=== PATIENT | male | born 1980 | race Caucasian/White ===

== ENCOUNTER → 2018-11-30 10:46 | Outpatient (CLI) | payer OTHER, SELFPAY ==
--- NOTE | 2018-11-30 | DI.CT.S_ITS ---
PROCEDURE: CT SINUS SCREEN WO CON INDICATIONS: Acute maxillary sinusitis, unspecified TECHNIQUE: Noncontrast 3.0 mm axial images acquired from the frontal sinuses to the mid-sella, with coronal and sagittal reformats. For radiation dose reduction, the following was used: automated exposure control, adjustment of mA and/or kV according to patient size. COMPARISON: [facility], CT, HEAD WITHOUT CONTRAST, 04/12/2016, 8:59. FINDINGS: Image quality: Excellent. Maxillary Sinuses: There is subtotal opacification seen of the right maxillary sinus. A portion of the medial wall of the maxillary sinus is demineralized. There is a small amount of mucosal thickening seen along the inferior aspect of the left maxillary sinus. Ethmoid Air Cells: Moderate mucosal thickening can be seen within the right ethmoid air cells. There is a mild amount of mucosal thickening seen on the left. No significant bony abnormality is seen. Sphenoid Sinuses: No bony remodeling or destruction. Sinuses are clear. Frontal Sinuses: No bony remodeling or destruction. There is mild to moderate mucosal thickening seen within the inferior right frontal sinus. Ostiomeatal Complexes: Ostiomeatal complexes are patent. No Adele cells. Miscellaneous: Visualized intra-orbital contents are normal. Bilateral shaq bullosa are seen. The right shaq bullosa is nearly completely opacified. There is mild to moderate rightward nasal septal deviation seen. IMPRESSION: There is subtotal opacification of the right maxillary sinus, which is consistent with the given history. Mild mucosal thickening is seen elsewhere within the paranasal sinuses. Dictated by: Conrado Headley M.D. on 11/30/2018 at 11:34 Approved by: Conrado Headley M.D. on 11/30/2018 at 11:37
== END ==
PROVIDERS: PCP Family Medicine; Visit Provider Nurse Practitioner Family
DX: J01.00 Acute maxillary sinusitis, unspecified (principal); J32.8 Other chronic sinusitis; J34.2 Deviated nasal septum; J34.3 Hypertrophy of nasal turbinates
CPT/HCPCS: 70486

== ENCOUNTER → 2021-05-17 15:07 | Outpatient (CLI) | payer OTHER, SELFPAY ==
--- NOTE | 2021-05-17 | DI.CT.S_ITS ---
PROCEDURE: CT HEAD/BRAIN WO CON INDICATIONS: Arthralgia of right temporomandibular joint TECHNIQUE: Noncontrast 4.5 mm thick angled axial sections acquired from the foramen magnum to the vertex, with coronal and sagittal reformats. For radiation dose reduction, the following was used: automated exposure control, adjustment of mA and/or kV according to patient size. COMPARISON: [facility], CT, HEAD WITHOUT CONTRAST, 04/12/2016, 8:59. FINDINGS: Image quality: Excellent. CSF spaces: Basal cisterns are patent. No extra-axial fluid collections. Ventricles are normal in size and shape. Brain: No midline shift. No intracranial masses or hemorrhage. Zamorano-white matter interface is normal. Skull and face: Calvarium and visualized facial bones are intact, without suspicious lesions. No significant TMJ degenerative change bilaterally. Sinuses: Visualized sinuses and mastoids are clear. IMPRESSION: No evidence acute intracranial process. Grossly unremarkable appearance of TMJ joints. Dictated by: Zachary Orta M.D. on 05/17/2021 at 15:27 Approved by: Zachary Orta M.D. on 05/17/2021 at 15:28
== END ==
PROVIDERS: PCP Nurse Practitioner Family; Referring Provider Nurse Practitioner Family; Visit Provider Nurse Practitioner Family
DX: J32.9 Chronic sinusitis, unspecified (principal); M26.621 Arthralgia of right temporomandibular joint
CPT/HCPCS: 70450

== ENCOUNTER → 2021-06-15 14:58 | Outpatient (CLI) | payer OTHER, SELFPAY ==
--- NOTE | 2021-06-15 15:00 | DI.CT.S_ITS ---
PROCEDURE: CT FACIAL BONES WO/W CON INDICATIONS: Jaw pain TECHNIQUE: After the administration of intravenous contrast, 2.5 mm axial sections acquired from the mid-neck to the frontal sinuses, with coronal and sagittal reformats. For radiation dose reduction, the following was used: automated exposure control, adjustment of mA and/or kV according to patient size. COMPARISON: [facility], CT, CT SINUS SCREEN WO CON, 11/30/2018, 10:51. [facility], CT, CT HEAD/BRAIN WO CON, 05/17/2021, 15:16. FINDINGS: Image quality: Excellent. Soft tissues: In this patient with this given history, scrutiny is given to the parotid glands. The parotid glands demonstrate a normal, symmetric appearance, without masses or abnormal enhancement seen. The submandibular glands are likewise unremarkable. No edema, masses, or fluid collections. No enlarged lymph nodes. Vascular: Visualized vascular structures appear patent throughout. Bony vascular foramina and canals appear normal. Bones: Scrutiny is given to the temporomandibular joints. To the limits of this CT examination, no significant abnormalities of the temporomandibular joints can be seen. Facial bones appear intact, without fractures, erosions, or destruction. Visualized portions of the skull base and auditory canals also appear normal. Sinuses: Paranasal sinuses are aerated without fluid levels, mucosal thickening, or mucoceles. Mastoid air cells are aerated. Prior postoperative change is seen, with right antrectomy. The previously seen right maxillary sinus opacification has resolved. IMPRESSION: No significant temporomandibular joint abnormality can be seen on this CT examination. If there remains strong clinical concern for temporomandibular joint pathology, please consider a dedicated TMJ protocol MRI, performed with open mouth and closed mouth views (assuming that there is no contraindication). No significant abnormality of the right parotid gland can be seen. Prior postoperative change, with right antrectomy. No significant paranasal sinus disease is now seen. Dictated by: Cornado Headley M.D. on 06/15/2021 at 14:51 Approved by: Conrado Headley M.D. on 06/15/2021 at 14:54
== END ==
PROVIDERS: PCP Nurse Practitioner Family; Referring Provider Nurse Practitioner Family; Visit Provider Nurse Practitioner Family
DX: R68.84 Jaw pain (principal); R60.0 Localized edema
CPT/HCPCS: 70488; Q9967